=== PATIENT | female | born 1970 | race Caucasian/White ===

== ENCOUNTER 2024-09-16 06:22 | Day surgery (SDC) | payer BC ==
[2024-09-12 14:06] VITALS: BMI 34.2
[2024-09-16] MEDS ORDERED: GENTAMICIN SO4 80 MG/2 ML VIAL ONE (10:20)
[2024-09-16] MEDS ORDERED: LIDOCAINE HCL 1%, 10 MG/ML (20ML VIAL) ONE (10:20)
[2024-09-16] MEDS ORDERED: MIDAZOLAM HCL 2 MG/2 ML SINGLE DOSE VIAL ONE (10:45)
[2024-09-16] MEDS ORDERED: DEXTROSE 5%-0.45% SALINE 1,000 ML IV SCH (10:45)
[2024-09-16] MEDS ORDERED: ROCURONIUM BROMIDE 50 MG/5 ML SYRINGE ONE (10:45)
[2024-09-16] MEDS: ceFAZolin SODIUM 1 GM VIAL IVPB ONE (11:04)
[2024-09-16] MEDS: LIDOCAINE HCL 1%, 10 MG/ML (20ML VIAL) NR ONE (11:11)
[2024-09-16] MEDS ORDERED: SUGAMMADEX SODIUM 200 MG/2 ML VIAL ONE (11:12)
[2024-09-16] MEDS ORDERED: PROPOFOL 20 ML ONE (11:36)
[2024-09-16] MEDS ORDERED: ACETAMINOPHEN INJECTION 100 ML ONE (12:07)
[2024-09-16] MEDS ORDERED: ONDANSETRON 4 MG/2 ML VIAL IVPUSH PRN (12:44)
[2024-09-16] MEDS ORDERED: LACTATED RINGERS SOLUTION 1,000 ML IV SCH (12:45)
[2024-09-16 13:30] VITALS: RESP 16
[2024-09-16 14:40] VITALS: BP 115/71; PULSE 84; TEMP 97.3
== END 2024-09-16 15:02 | disposition home or self-care (01) ==
LOC: JASU-SURG 06:22
PROVIDERS: ATTEND Urology
PROC: 0JPT0MZ Removal of Stimulator Generator from Trunk Subcutaneous Tissue and Fascia, Open Approach (ICD-10-PCS; 2024-09-16)
PROC: 01PY0MZ Removal of Neurostimulator Lead from Peripheral Nerve, Open Approach (ICD-10-PCS; principal; 2024-09-16 11:00)
DX: Z96.82 Presence of neurostimulator (principal)
CPT/HCPCS: 76000-TC-FY; 88300-TC; 94760; J0131